=== PATIENT | male | born 1995 | race Hispanic/Latino ===

== ENCOUNTER 2018-09-12 09:39 | Emergency (ER) | payer SELFPAY ==
[2018-09-12] MEDS ORDERED: Morphine 4 MG/ML VIAL ONE (10:08)
[2018-09-12 10:28] LABS: #Eosinphils 0.1 thou/uL (0.0-0.7); #Lymphocytes 1.7 thou/uL (1.20-3.40); #Monocytes 0.3 thou/uL (0.11-0.59); #Neutrophils 5.5 thou/uL (1.40-6.50); %Basophils 0.4 % (0.0-1.0); %Eosinophils 1.7 % (0.0-10.0); %Lymphocytes 22.5 % (21.0-51.0); %Monocytes 4.4 % (0.0-10.0); Hemoglobin 15.3 g/dL (14.0-18.0); Mean Corpuscular HGB CONC 34.2 g/dL (32.0-36.0); Mean Corpuscular Volume 90.8 fL (78.0-98.0); Platelet Count 248 thou/uL (130-400); RBC Distribution Width 11.5 % (11.5-14.5); Red Blood Cell (RBC) Count 4.94 mill/uL (4.70-6.10); White Blood Cell (WBC) Count 7.8 thou/uL (4.8-10.8)
[2018-09-12 10:50] LABS: ALT (SGPT) 42 U/L (8-55); AST (SGOT) 22 U/L (5-34); Albumin 4.3 g/dL (3.5-5.0); Alkaline Phosphatase 88 U/L (40-150); Anion Gap 12 mmol/L (10-20); BUN (Urea Nitrogen) 10 mg/dL (8.9-20.6); Bilirubin, Total 0.5 mg/dL (0.2-1.2); Calc. Creatinine Clearance 0 mL/min (70-130); Calcium 9.4 mg/dL (7.8-10.44); Carbon Dioxide 25 mmol/L (22-29); Chloride 106 mmol/L (98-107); Estimated GFR-MDRD Greater than 90; Globulin 3.2 g/dL (2.4-3.5); Glucose 102 mg/dL (70-105); Potassium 3.7 mmol/L (3.5-5.1); Protein, Total 7.5 g/dL (6.0-8.3); Sodium 139 mmol/L (136-145)
--- NOTE | 2018-09-12 13:06 | CT ---
CT OF ABDOMEN AND PELVIS PERFORMED WITH IV CONTRAST ENHANCEMENT: Date: 09/12/18 HISTORY: Abdominal pain localizing more to the right lower quadrant. FINDINGS: The lung bases are clear of any infiltrative process. The liver, spleen, pancreas, and gallbladder regions appear unremarkable. Right and left adrenal glands, and right and left kidneys are normal in size and appearance. There is no significant periaortic adenopathy. I do not appreciate any significant mesenteric adenopathy. CT of pelvis was performed with contrast enhancement. No adenopathy, mass, or free fluid. The appendi x region appears unremarkable. IMPRESSION: No acute findings of the abdomen and pelvis. POS: [facility]
[2018-09-12] MEDS ORDERED: Iopamidol 370 76% 100 ML VIAL ONE (13:30)
== END 2018-09-12 13:10 | disposition home or self-care (01) ==
LOC: ERS 09:39
DX: R10.31 Right lower quadrant pain (principal)
CPT/HCPCS: 74177; 80053; 85025; 96374; J2270